=== PATIENT | male | born 1990 | race African-American/Black ===

== ENCOUNTER 2016-11-17 21:16 | Emergency (ER) | payer BC, MEDICAID, OTHER ==
[2016-11-17 21:30] VITALS: RESP 16; TEMP 97.9
--- NOTE | 2016-11-17 21:39 | EDPHY ---
H & P Stated Complaint: left hand laceration Time Seen by Provider: 11/17/16 21:38 HPI/ROS: HPI: This is a 26-year-old male who presents with Chief Complaint: Cut on left hand Location: Left hand Quality: Cut Duration: Prior to arrival Signs and Symptoms: No bleeding, no radiation, no numbness, no weakness, no tingling, no incontinence, no decreased range of motion Timing: Severity: Moderate Context: Patient presents with accidentally cutting his left hand while drying glasses at work. Immediate pain and bleeding. washed out thoroughly with water. Right-hand dominant. Tetanus up-to-date. Right hand dominant Modifying Factors: Comment: ROS: Constitutional: No fever, no chills, no weight loss Eyes: No blurred vision Respiratory: No shortness of breath, no cough Cardiovascular: No chest pain Gastrointestinal: No nausea, no vomiting no diarrhea Genitourinary: No dysuria Extremities: No myalgias Neurologic: No weakness, no numbness Skin: No rashes Hematologic: No bruising, no bleeding MEDICAL/SURGICAL/SOCIAL HISTORY: Generally healthy. Denies surgical history. Source: Patient Exam Limitations: No limitations - Personal History Current Tetanus Diphtheria and Acellular Pertussis (TDAP): Yes - Medical/Surgical History Hx Asthma: No Hx Chronic Respiratory Disease: No Hx Diabetes: No Hx Cardiac Disease: No Hx Renal Disease: No Hx Cirrhosis: No Hx Alcoholism: No Hx HIV/AIDS: No Hx Splenectomy or Spleen Trauma: No Other PMH: none - Social History Smoking Status: Current every day smoker - Physical Exam Exam: CONSTITUTIONAL: Pleasant adult male, awake and alert, no obvious distress HEENT: Atraumatic and normocephalic, PERRL, EOMI. Tympanic membranes clear. . Oropharynx clear, no exudate and moist pink mucosa. Airway patent. No lymphadenopathy. No meningismus. Cardiovascular: Normal S1/S2, regular rate, regular rhythm, without murmur rub or gallop. PULMONARY/CHEST: Symmetrical and nontender. Clear to auscultation bilaterally Good air movement. No accessory muscle usage. ABDOMEN: Soft, nondistended, nontender, no rebound, no guarding, no peritoneal signs, no masses or organomegaly. No CVAT. EXTREMITIES: 2/2 pulses, left hand 2 cm linear laceration thenar eminence; no scaphoid tenderness. Flexion extension intact at the DIP and PIP joints. Left wrist full range of motion. no clubbing, no cyanosis or edema. NEUROLOGICAL: no focal neuro deficits. GCS 15. SKIN: Warm and dry, no erythema. no rash. Good capillary refill. Constitutional: Initial Vital Signs Temperature (C) 36.6 C 11/17/16 21:26 Heart Rate 74 11/17/16 21:26 Respiratory Rate 16 11/17/16 21:26 Blood Pressure 162/89 H 11/17/16 21:26 O2 Sat (%) 97 11/17/16 21:26 Allergies/Adverse Reactions: No Known Allergies Allergy (Unverified 11/17/16 21:26) Home Medications: Medication Instructions Recorded NK [No Known Home Meds] 11/17/16 Medical Decision Making Procedures: Procedure: Laceration repair. Verbal consent was obtained from the patient. The simple, deep 2 cm laceration on the left hand thenar eminence was anesthetized in the usual fashion using 4 mL 1% lidocaine with epinephrine. The wound was irrigated, draped and explored to its base with a gloved finger. There were no deep structures involved. No tendon injury was identified. The wound was repaired with #8, 6 0 Prolene in simple interrupted pattern. Good hemostasis was achieved. Patient tolerated procedure well. The procedure was performed by myself. ED Course/Re-evaluation: Wound cleaned and irrigated. Tetanus up-to-date. # 8 Sutures placed. Xeroform, 4x4 gauze, Kerlix dressing applied. No signs of neurovascular compromise/tenting of skin/compartment syndrome/ extremities and joints examined above and below area of concern and are neurovascularly intact/nerve injury. Differential Diagnosis: Differential includes laceration, nerve injury, tendon injury, foreign body. Departure - Departure Disposition: Home, Routine, Self-Care Clinical Impression: Laceration of left hand without complication, excluding fingers Qualifiers: Encounter type: initial encounter Qualified Code(s): S61.412A - Laceration without foreign body of left hand, initial encounter Condition: Good Instructions: Care For Your Stitches (ED), Laceration (ED) Additional Instructions: Keep the dressing in place for 48 hours. After 48 hours, you may remove the dressing; wash the site daily with mild soap and water; then pat dry. Take ibuprofen 600-800 mg every 6-8 hours with food as needed for pain and inflammation. Apply ice for 30 minutes at a time; 2-3 times per day for the next 1-2 days. Sutures need to be removed in 7-10 days. You may return to the ER or your primary care provider. The x-rays obtained in the emergency department today demonstrate no evidence of an obvious fracture. Sometimes fractures are not obvious on the initial set of x-rays performed in the ED. For this reason, you should have repeat x-rays performed in 7-10 days if you are having any pain exclude the possibility of an occult fracture. Referrals: [facility],. [Clinic] - As per Instructions
[2016-11-17] MEDS ORDERED: CEPHALEXIN 500MG PREPACK#4 BTL TAKEHOME ONE (22:24)
[2016-11-17 22:33] VITALS: BP 139/100; PULSE 71; O2SAT 99
== END 2016-11-17 22:33 | disposition home or self-care (01) ==
PROC: 0HQGXZZ Repair Left Hand Skin, External Approach (ICD-10-PCS; principal; 2016-11-17)
DX: S61.412A Laceration without foreign body of left hand, initial encounter (principal); W25.XXXA Contact with sharp glass, initial encounter; Y92.69 Other specified industrial and construction area as the place of occurrence of the external cause; Y99.0 Civilian activity done for income or pay; Y93.89 Activity, other specified; F17.200 Nicotine dependence, unspecified, uncomplicated